=== PATIENT | male | born 1960 | race Asian ===

== ENCOUNTER 2017-11-08 13:00 | Outpatient (CLI) | payer OTHER | END 2017-11-08 13:01 | disposition home or self-care (01) | LOC: SC 13:00 | PROVIDERS: ATTEND Internal Medicine Pulmonary Disease | DX: G47.33 Obstructive sleep apnea (adult) (pediatric) (principal) | CPT/HCPCS: 99203; 99212 ==

== ENCOUNTER 2017-12-01 20:41 | Outpatient (CLI) | payer OTHER | END 2017-12-01 20:42 | disposition home or self-care (01) | LOC: SC 20:41 | PROVIDERS: ATTEND Internal Medicine Pulmonary Disease | DX: G47.33 Obstructive sleep apnea (adult) (pediatric) (principal) | CPT/HCPCS: 95811 ==

== ENCOUNTER 2017-12-20 10:02 | Outpatient (CLI) | payer OTHER | END 2017-12-20 10:03 | disposition home or self-care (01) | LOC: SC 10:02 | PROVIDERS: ATTEND Nurse Practitioner Family | DX: G47.33 Obstructive sleep apnea (adult) (pediatric) (principal) | CPT/HCPCS: 99212; 99214 ==

== ENCOUNTER 2018-02-13 16:04 | Outpatient (CLI) | payer OTHER | END 2018-02-13 16:05 | disposition home or self-care (01) | LOC: SC 16:04 | PROVIDERS: ATTEND Nurse Practitioner Family | DX: G47.33 Obstructive sleep apnea (adult) (pediatric) (principal) | CPT/HCPCS: 99212; 99214 ==

== ENCOUNTER 2018-04-15 10:07 | Outpatient (CLI) | payer OTHER | END 2018-04-15 10:08 | disposition home or self-care (01) | LOC: SC 10:07 | PROVIDERS: ATTEND Nurse Practitioner Family | DX: G47.33 Obstructive sleep apnea (adult) (pediatric) (principal) | CPT/HCPCS: 99212; 99214 ==

== ENCOUNTER 2018-05-13 08:43 | Outpatient (CLI) | payer OTHER | END 2018-05-13 08:44 | disposition home or self-care (01) | LOC: SC 08:43 | PROVIDERS: ATTEND Nurse Practitioner Family | DX: G47.33 Obstructive sleep apnea (adult) (pediatric) (principal) | CPT/HCPCS: 99212; 99214 ==

== ENCOUNTER 2018-08-26 10:37 | Outpatient (CLI) | payer OTHER | END 2018-08-26 10:38 | disposition home or self-care (01) | LOC: SC 10:37 | PROVIDERS: ATTEND Nurse Practitioner Family | DX: G47.33 Obstructive sleep apnea (adult) (pediatric) (principal) | CPT/HCPCS: 99212; 99214 ==

== ENCOUNTER 2019-11-13 12:50 | Outpatient (CLI) | payer OTHER ==
[2019-11-13 13:41] VITALS: BP 102/68
--- NOTE | 2019-11-13 13:41 | SLEEP CARE CONSULTATION ---
Information from patient questionnaire entered by Lyubov Mosqueda. I have reviewed and concur with the information entered by Lyubov Mosqueda. This document represents the service I personally performed and the decisions made by me, Vikki Lira, RN, MSN, [employer]ATOR OPERATOR. History of Present Illness Service Date and Time: 11/13/2019 1250 Previous diagnosis: Severe, Obstructive Sleep Apnea-Hypopnea Syndrome AHI: 59.8 (in 2018) Reason for follow up: other (7 month, pressure issues) Equipment type: CPAP Equipment obtained from: [employer] (getting supplies as needed) Mask style: Full face Mask brand: Resmed Backup mask available: Yes (old mask ) Last cushion change: 1 month ago Prior sleep studies: Yes Year and Where: 2017 - [facility] , 2014 - [facility] Type of Sleep Study: Polysomnography (Split-night) Sleep Study - Results Prior sleep studies: Yes CPAP Compliance Data - Data Reviewed with Patient Average duration of nightly device use: 6.4 Compliance rate %: 73.9 (180 days) Current pressure setting (cmH2O): 8-10 Humidity settin Heated hose settin Average residual AHI: 3.9 Average large leak: 6 min 24 sec Subjective Missed days of use due to: reports: mask issues, illness (sinus infection from sawdust - wearing protective mask ), other (falling asleep without) Patient concerns: denies: aerophagia, mask discomfort, air blowing in eyes, mask leak noise, condensation in mask/hose, nasal congestion, dry mouth, nose, throat, epistaxis Observed to snore while using device: Yes (sometimes ) Current pressure setting perceived as: comfortable On therapy, patient: reports: sleeping better, awakening more refreshed, being more awake and alert during the day, more rested overall. denies: drowsiness while driving Initial [place] Sleepiness Scale score: 13 (in 2018) Current [place] Sleepiness Scale score: 5 Allergies and Home Medications Known drug allergies: Yes (statins) Home medication list reviewed: Yes (no changes ) Review of Systems Review of systems same as previous: Yes Physical Exam Blood Pressure: 102/68 Cuff size: long Heart Rate: 66 O2 Saturation: 95 Height: 6 ft 2 in Weight: 306 lb 12.8 oz Weight change since last visit: lost 20 pounds Body Mass Index: 39.4 BMI Classification: Obese Impression and Plan 1. Obstructive Sleep Apnea-Hypopnea Syndrome, severe, with good treatment compliance and good apnea control. On CPAP therapy, the patient has better sleep quality and is more rested overall. To prevent falling asleep in chair or bed, he is advised to put a bedtime alarm on phone. He is also advised to put his mask before getting into bed. To resolve snore, the CPAP pressure will be changed to [id number]. Patient advised to contact this office if pressure change uncomfortable or if pressure change does not resolve snore. Patient praised for attaining weight loss goal. His next goal is to get to 285 about 20 more pounds. His current autoCPAP pressure range should accomodate that goal. However, he was given symptoms to report for furhter reduction of CPAP pressure. Patient's apnea severity and rationale for treatment to reduce apnea, improve sleep quality and reduce cardiovascular and cerebrovascular events was reviewed. I also reviewed the benefit of consistent device use of CPAP for hypertension. * * Changeauto CPAP pressure to 7 cmH2O * Notify me if snoring with mask or feeling that the pressure is too much or too little * Continue to lose weight * Call this office if any problems using CPAP * Return for follow up in 6 months , or sooner if concerns arise Visit Type: In Office Time Spent with Patient (minutes): 29 Provider Statement: I spent 100% of the Face to Face Visit with the patient with greater than 50% spent counseling the patient and coordination of care.
== END 2019-11-13 12:51 | disposition home or self-care (01) ==
LOC: SC 12:50
PROVIDERS: ATTEND Nurse Practitioner Family
DX: G47.33 Obstructive sleep apnea (adult) (pediatric) (principal); E66.9 Obesity, unspecified; Z68.39 Body mass index [BMI] 39.0-39.9, adult
CPT/HCPCS: 99212; 99214

== ENCOUNTER 2020-08-10 09:01 | Outpatient (CLI) | payer OTHER ==
--- NOTE | 2020-08-10 09:51 | SLEEP CARE CONSULTATION ---
Information from patient questionnaire entered by Lyubov Mosqueda. I have reviewed and concur with the information entered by Lyubov Mosqueda. This document represents the service I personally performed and the decisions made by , Eda Humphrey ARNP. History of Present Illness Service Date and Time: 08/10/2020 09 Previous diagnosis: Severe, Obstructive Sleep Apnea-Hypopnea Syndrome AHI: 59.8 (in 2018) Reason for follow up: other (8 month) Equipment type: CPAP Equipment obtained from: [employer] (getting supplies as needed) Mask style: Full face Backup mask available: Yes (old mask) Prior sleep studies: Yes Year and Where: 2017 - [facility] , 2014 - [facility] HPI additional information: MAHESH DANGELO was diagnosed to have severe, 59.8, obstructive sleep apnea- hypopnea syndrome and returned today for CPAP therapy 8 month follow-up. CPAP Compliance Data - Data Reviewed with Patient Average duration of nightly device use: 7 hr 27 sec Compliance rate %: 75 (180 days) Current pressure setting (cmH2O): 8-11 Humidity settin Heated hose settin Average residual AHI: 3.4 Average large leak: 1 min 54 sec Subjective Patient concerns: denies: aerophagia, mask discomfort, air blowing in eyes, mask leak noise, condensation in mask/hose, nasal congestion, dry mouth, nose, throat, epistaxis, other Observed to snore while using device: No Current pressure setting perceived as: comfortable On therapy, patient: reports: sleeping better, awakening more refreshed, being more awake and alert during the day, more rested overall. denies: drowsiness while driving Initial [place] Sleepiness Scale score: 13 (in 2018) Current [place] Sleepiness Scale score: 10 Allergies and Home Medications Home medication list reviewed: Yes (no new meds) Review of Systems Review of systems same as previous: Yes (no changes) Physical Exam Heart Rate: 68 O2 Saturation: 96 Height: 6 ft 2 in Weight: 316 lb Weight change since last visit: 10 lb gain Body Mass Index: 40.6 BMI Classification: Morbidly Obese Impression and Plan 1. Obstructive Sleep Apnea-Hypopnea Syndrome, severe, with good treatment compliance and good apnea control. On CPAP therapy, the patient has better sleep quality and is more rested overall. He just comes in for a follow-up today. He has no complaints of skin irritation, oral dryness, epistaxis or aerophagia. He denies any snoring through the mask. He has no other concerns today and is very satisfied with his CPAP therapy. He has gained about 10 pounds since his last appointment. He states he is aware and is trying to make an effort to lose weight. I encouraged him to continue to try to lose weight. I will have him follow-up with us next year or he may call if he has other concerns during the year. He voiced understanding and agreement with this plan of care. Patient's apnea severity and rationale for treatment to reduce apnea, improve sleep quality and reduce cardiovascular and cerebrovascular events was reviewed. I also reviewed the benefit of consistent device use of CPAP for hypertension. * Continue auto CPAP pressure at 8-11 cmH2O * Notify me if snoring with mask or feeling that the pressure is too much or too little * Continue to try to lose weight * Call this office if any problems using CPAP * Return for follow up in 1 year, or sooner if concerns arise Counseling Topics: Spare mask, Weight loss health impact Visit Type: In Office Time Spent with Patient (minutes): 13 Provider Statement: I spent 100% of the Face to Face Visit with the patient with greater than 50% spent counseling the patient and coordination of care.
== END 2020-08-10 09:02 | disposition home or self-care (01) ==
LOC: SC 09:01
PROVIDERS: ATTEND Nurse Practitioner Family
DX: G47.33 Obstructive sleep apnea (adult) (pediatric) (principal); E66.01 Morbid (severe) obesity due to excess calories; Z68.41 Body mass index [BMI] 40.0-44.9, adult
CPT/HCPCS: 99212

== ENCOUNTER 2021-11-24 14:56 | Outpatient (CLI) | payer OTHER ==
--- NOTE | 2021-11-24 15:19 | SLEEP CARE CONSULTATION ---
Information from patient questionnaire entered by Matilde Jimenez MA. I have reviewed and concur with the information entered by Matilde Jimenez MA. This document represents the service I personally performed and the decisions made by , Eda Humphrey ARNP. History of Present Illness Service Date and Time: 11/24/2021 1456 Previous diagnosis: Severe, Obstructive Sleep Apnea-Hypopnea Syndrome AHI: 59.8 (in 2018) Reason for follow up: annual (LAST SEEN 08/23) Equipment type: CPAP Equipment obtained from: [employer] (getting supplies as needed) Mask style: Full face Mask brand: Resmed (AirTouch [email or web address]) Backup mask available: Yes (old mask) Last cushion change: 4 weeks Prior sleep studies: Yes Year and Where: 2017 - [facility] , [address] [place] [address] Sleep HPI additional information: MAHESH DANGELO was diagnosed to have severe, AHI 59.8, obstructive sleep apnea-hypopnea syndrome and returned today for CPAP therapy annual follow-up. Sleep Study - Results Prior sleep studies: Yes Year and Where: 2018 - [facility] , [address] [place] [address] Sleep CPAP Compliance Data - Data Reviewed with Patient Average duration of nightly device use: 5 hrs 58 min Compliance rate %: 77.2 (155/180 days used ) Current pressure setting (cmH2O): 8-11 Average residual AHI: 5.0 Average large leak: 3 mins 31 secs Subjective Missed days of use due to: reports: other (sleepless night) Patient concerns: denies: aerophagia, mask discomfort, air blowing in eyes, mask leak noise, condensation in mask/hose, nasal congestion, dry mouth, nose, throat, epistaxis Observed to snore while using device: No Current pressure setting perceived as: comfortable (mask type full face) On therapy, patient: reports: sleeping better, awakening more refreshed, being more awake and alert during the day, more rested overall. denies: drowsiness while driving Initial [place] Sleepiness Scale score: 13 (in 2018) Current [place] Sleepiness Scale score: 8 Allergies and Home Medications Drug allergies reviewed: Yes (NKDA) Home medication list reviewed: Yes (no changes) Review of Systems Review of systems same as previous: Yes (no changes) Physical Exam Vital signs obtained and entered by: KATJA THOMAS Blood Pressure: 120/70 (left arm) Cuff size: large Heart Rate: 71 O2 Saturation: 95 Height: 6 ft 2 in Weight: 317 lb Body Mass Index: 40.6 BMI Classification: Morbidly Obese Impression and Plan 1. Obstructive Sleep Apnea-Hypopnea Syndrome, severe, with good treatment compliance and good apnea control. On CPAP therapy, the patient has better sleep quality and is more rested overall. Patient received his DreamStation 2 and is liking it how well it works. Patient has significant improvement of his sleep apnea with a slight elevation of his residual AHI at 5.0. He also feels that he could use a little more pressure. I will increase his pressure setting to 9-12 cm H2O to reduce residual AHI and increase patient comfort. Patient denies problems with oral dryness, nasal congestion, epistaxis, skin irritation or aerophagia. Patient's apnea severity and rationale for treatment to reduce apnea, improve sleep quality and reduce cardiovascular and cerebrovascular events was reviewed. I also reviewed the benefit of consistent device use of CPAP for hypertension. 2. Obesity, unspecified. Currently patients BMI is 40.6. Patient states he did lose some weight but seems to have gained it all back. Obesity increases the risk of apnea, CPAP pressure requirements and overall health risks especially cardiovascular and diabetes. Thus patient is advised to continue to try to lose weight. Weight loss can be done with reducing portion size, reducing refined foods and balancing content with vegetables, fruit and whole grain foods. In addition, patient encouraged to get regular exercise. * Update supplies * Change auto CPAP pressure to 9-12 cmH2O * Notify me if snoring with mask or feeling that the pressure is too much or too little * Attempt to lose weight * Call this office if any problems using CPAP * Return for follow up in 1 year, or sooner if concerns arise Counseling Topics: Spare mask, Weight loss health impact Visit Type: In Office Time Spent with Patient (minutes): 21 Provider Statement: I spent 100% of the Face to Face Visit with the patient with greater than 50% spent counseling the patient and coordination of care.
[2021-11-24 15:20] VITALS: BP 120/70
== END 2021-11-24 14:57 | disposition home or self-care (01) ==
LOC: SC 14:56
PROVIDERS: ATTEND Nurse Practitioner Family
DX: G47.33 Obstructive sleep apnea (adult) (pediatric) (principal); E66.01 Morbid (severe) obesity due to excess calories; Z68.41 Body mass index [BMI] 40.0-44.9, adult
CPT/HCPCS: 99212; 99213

== ENCOUNTER 2023-02-06 15:25 | Outpatient (CLI) | payer OTHER ==
--- NOTE | 2023-02-06 15:54 | Sleep Patient Instructions ---
Sleep Center Visit Summary - Patient Visit Information Reason for Visit: Annual Visit - Patient Instructions Additional Instructions: You will continue with CPAP therapy with pressure changed to 10-13 cmH2O. A supply prescription will be updated with your DME. We encourage you to continue to try to lose weight. Please follow up with the sleep care office in 1 year. - Clinic Information Contact: [facility] [address] [place] [address] [email or web address] T: [phone]
--- NOTE | 2023-02-06 15:55 | SLEEP CARE CONSULTATION ---
Information from patient questionnaire entered by Fortino Whyte. I have reviewed and concur with the information entered by Fortino Whyte. This document represents the service I personally performed and the decisions made by me, Eda Humphrey ARNP. History of Present Illness Service Date and Time: 02/06/2023 1525 Previous diagnosis: Severe, Obstructive Sleep Apnea-Hypopnea Syndrome AHI: 59.8 (in 2018) Reason for follow up: annual (LAST SEEN 11/2021) Equipment type: CPAP (DREAMSTATION 2) Equipment obtained from: [employer] (getting supplies as needed) Mask style: Full face Mask brand: Resmed (AirTouch F20) Backup mask available: Yes (old mask) Last cushion change: in last few days Prior sleep studies: Yes Year and Where: 2017 - [facility] , [address] [place] [address] Sleep HPI additional information: MAHESH DANGELO was diagnosed to have severe, AHI 59.8, obstructive sleep apnea-hypopnea syndrome and returned today for CPAP therapy annual follow-up. Sleep Study - Results Prior sleep studies: Yes Year and Where: 2018 - [facility] , [address] [place] [address] Sleep CPAP Compliance Data - Data Reviewed with Patient Average duration of nightly device use: 6 HRS 9 MINS 55 SECS Compliance rate %: 82.5 (02/02/2022-02/01/23; 338/365 days used) Current pressure setting (cmH2O): 9-12 Average residual AHI: 3.9 Average large leak: 50 secs Subjective Missed days of use due to: reports: other (early wakeups in morning and can't return to sleep) Patient concerns: denies: aerophagia, mask discomfort, air blowing in eyes, mask leak noise, condensation in mask/hose, nasal congestion, dry mouth, nose, throat, epistaxis Observed to snore while using device: Yes Current pressure setting perceived as: comfortable On therapy, patient: reports: sleeping better, awakening more refreshed, being more awake and alert during the day, more rested overall. denies: drowsiness while driving Initial [place] Sleepiness Scale score: 13 (in 2018) Current [place] Sleepiness Scale score: 11 (02/06/23) Allergies and Home Medications Known drug allergies: No Drug allergies reviewed: Yes Home medication list reviewed: Yes (no changes) Review of Systems Review of systems same as previous: Yes (NO CHANGE) Physical Exam Vital signs obtained and entered by: FORTINO Le MA Blood Pressure: 128/78 (LEFT ARM) Cuff size: long Heart Rate: 74 O2 Saturation: 74 Height: 6 ft 2 in Weight: 319 lb Body Mass Index: 40.9 BMI Classification: Morbidly Obese Impression and Plan 1. Obstructive Sleep Apnea-Hypopnea Syndrome, severe, with good treatment comp liance and good apnea control. On CPAP therapy, the patient has better sleep quality and is more rested overall. His says he is snoring when using his CPAP. To resolve snore, the CPAP pressure will be changed to 10-13 cmH20. Patient advised to contact this office if pressure change uncomfortable or if pressure change does not resolve snore. Patient has significant improvement of their sleep apnea and is satisfied with current CPAP therapy. Patient denies problems with oral dryness, nasal congestion, epistaxis, skin irritation or aerophagia. Patient's apnea severity and rationale for treatment to reduce apnea, improve sleep quality and reduce cardiovascular and cerebrovascular events was reviewed. I also reviewed the benefit of consistent device use of CPAP for hypertension. 2. Obesity, unspecified. Currently patients BMI is 40.9. Obesity increases the risk of apnea, CPAP pressure requirements and overall health risks especially cardiovascular and diabetes. Thus patient is advised to lose weight. * Change auto CPAP pressure to 10-13 cmH2O * Update supply prescription * Notify me if snoring with mask or feeling that the pressure is too much or too little * Attempt to lose weight * Call this office if any problems using CPAP * Return for follow up in 12 months, or sooner if concerns arise Counseling Topics: Spare mask, Weight loss health impact Prescriptions: Device supplies Follow up with Sleep Care in: 1 year Visit Type: In Office Time Spent with Patient (minutes): 17 Provider Statement: I spent 100% of the Face to Face Visit with the patient with greater than 50% spent counseling the patient and coordination of care.
[2023-02-06 15:57] VITALS: BP 128/78; O2SAT 74
== END 2023-02-06 15:26 | disposition home or self-care (01) ==
LOC: SC 15:25
PROVIDERS: ATTEND Nurse Practitioner Family
DX: G47.33 Obstructive sleep apnea (adult) (pediatric) (principal); E66.01 Morbid (severe) obesity due to excess calories; Z68.41 Body mass index [BMI] 40.0-44.9, adult
CPT/HCPCS: 99212